=== PATIENT | male | born 1970 | race Native Hawaiian/Other Pacific Islander ===

== ENCOUNTER 2017-06-02 08:13 | Outpatient (CLI) | payer BC ==
[2017-06-02 08:40] LABS: PLATELET COUNT 289 K/uL (142-355)
[2017-06-02 09:02] LABS: POTASSIUM 3.7 mmol/L (3.6-5.2); SODIUM 139 mmol/L (136-145)
== END 2017-06-02 19:07 | disposition home or self-care (01) ==
LOC: LABW 08:13
PROVIDERS: Nurse Practitioner
DX: I10 Essential (primary) hypertension (principal); E78.01 Familial hypercholesterolemia; R53.83 Other fatigue; Z12.5 Encounter for screening for malignant neoplasm of prostate
CPT/HCPCS: 36415; 80053; 80061; 84153; 84402; 84403; 84436; 84443; 85027

== ENCOUNTER 2021-03-24 13:45 | Outpatient (CLI) | payer BC | END 2021-03-24 22:29 | disposition home or self-care (01) | LOC: RAD 13:45 | PROVIDERS: ATTEND Nurse Practitioner Family | DX: R20.0 Anesthesia of skin (principal) ==